=== PATIENT | male | born 1990 | race Hispanic/Latino ===

== ENCOUNTER 2022-12-28 17:40 | Emergency (ER) | payer OTHER ==
--- NOTE | 2022-12-28 20:05 | RAD REPORT ---
EXAM DESCRIPTION: RAD - Foot Right 3 View - 12/28/2022 6:17 pm CLINICAL HISTORY: Pain;Swelling COMPARISON: No comparisons TECHNIQUE: Right foot, 3 views. FINDINGS: No fracture, dislocation or periosteal reaction. No air or foreign body in the soft tissues. IMPRESSION: Negative right foot examination.
--- NOTE | 2022-12-28 20:10 | EDPHYS ---
Physician Documentation [facility] Name: Dirk Toledo Age: 32 yrs Sex: Male : 1990 Arrival Date: 12/28/2022 Time: 17:40 Bed 20 Private MD: ED Physician Gareth Kirk HPI: 12/28 17:53 This 32 yrs old Male presents to ER via Unassigned with complaints of Foot sb4 Pain. 17:53 The patient presents with pain, that is acute. The complaints affect the right foot. sb4 Context: [place] resulted from an unknown cause, must have assistance, Problem is a result from a previous injury: No. Onset: The symptoms/episode began/occurred just prior to arrival. Modifying factors: The symptoms are alleviated by nothing. the symptoms are aggravated by weight bearing. Treatment prior to arrival includes: no previous treatment. 17:56 patient was at the beach, had just gotten his feet into the water when he felt a pain sb4 in his right foot. he is not sure if he was stung by a stingray, jellyfish, or stepped on something. he reports severe pain to the right foot with associated swelling. reports he had a tetanus shot 2 years ago. Historical: - Allergies: 17:40 No Known Allergies; eh3 - Home Meds: 17:40 amlodipine oral [Active]; Lisinopril Oral [Active]; Clonazepam Oral [Active]; eh3 atorvastatin oral [Active]; escitalopram oxalate oral [Active]; pantoprazole oral [Active]; - PMHx: 17:40 Hypertensive disorder; Hypercholesterolemia; Anxiety; eh3 - PSHx: 17:40 Cardiac ablation; eh3 - Immunization history:: Adult Immunizations up to date. - Social history:: Smoking status: Patient denies any tobacco usage or history of. Patient uses alcohol, weekly. ROS: 17:56 Constitutional: Negative for fever, chills, and weight loss. sb4 17:56 MS/extremity: Positive for injury or acute deformity, erythema, pain, swelling, tenderness, tingling, warmth, of the right foot. 17:56 All other systems are negative. Exam: 17:56 Head/Face: Normocephalic, atraumatic. sb4 17:56 Constitutional: The patient appears alert, awake, in obvious pain, uncomfortable. 17:56 Musculoskeletal/extremity: Extremities: grossly normal except: erythema, pain, puncture, swelling, tenderness, ROM: intact in all extremities, Circulation is intact in all extremities. Sensation intact. 17:56 Skin: injury, puncture(s), that are superficial, of the lateral side of right foot. Vital Signs: 17:40 BP 131 / 92; Pulse 92; Resp 20; Temp 99.1(IR); Pulse Ox 97% on R/A; Weight 104.33 kg; eh3 Height 5 ft. 8 in. ; Pain 10/10; 18:30 BP 135 / 88; Pulse 97; Resp 18; Pulse Ox 96% on R/A; eh3 19:30 BP 119 / 80; Pulse 84; Resp 18; Pulse Ox 95% on R/A; eh3 20:30 BP 123 / 75; Pulse 81; Resp 18; Pulse Ox 95% on R/A; eh3 17:40 Body Mass Index 34.97 (104.33 kg, 172.72 cm) 3 17:40 Pain Scale: Adult eh3 MDM: 17:42 Patient medically screened. sb4 17:56 Differential diagnosis: stingray sting, jellyfish sting, laceration with foreign body, sb4 superficial laceration, tendon injury. 20:09 Data reviewed: vital signs, nurses notes, radiologic studies, and as a result, I will sb4 discharge patient. Counseling: I had a detailed discussion with the patient and/or guardian regarding: the historical points, exam findings, and any diagnostic results supporting the discharge/admit diagnosis, radiology results, to return to the emergency department if symptoms worsen or persist or if there are any questions or concerns that arise at home. 12/29 14:54 Independent interpretation of the following test(s) in the Emergency Department X-Ray: sb4 My interpretation is my interpretation of the foot xray images are no acute fracture or foreign body. Response to treatment: the patient's symptoms have markedly improved after treatment. 12/28 17:52 Order name: Foot Right 3 View XRAY; Complete Time: 20:06 sb4 Administered Medications: 12/28 18:00 Drug: morphine IM 4 mg Route: IM; Site: right deltoid; [facility] 19:00 Follow up: Response: No adverse reaction eh3 18:00 Drug: Ondansetron PO 4 mg Route: PO; eh3 19:00 Follow up: Response: No adverse reaction eh3 Disposition: 12/29 07:54 Co-signature as Attending Physician, Gareth Kirk MD I agree with the assessment and kdr plan of care. Disposition Summary: 12/28/22 20:09 Discharge Ordered Location: Home sb4 Problem: new sb4 Symptoms: have improved sb4 Condition: Stable sb4 Diagnosis - Toxic effect of contact with stingray, accidental (unintentional), initial encountersb4 Followup: sb4 - With: Private Physician - When: As needed - Reason: Recheck today's complaints, Continuance of care, Re-evaluation by your physician Discharge Instructions: - Discharge Summary Sheet sb4 - Marine Life Injury, [id number] sb4 Forms: - Medication Reconciliation Form sb4 - Thank You Letter sb4 - Antibiotic Education sb4 - Prescription Opioid Use sb4 - Patient Portal Instructions sb4 - Leadership Thank You Letter sb4 Prescriptions: - ketorolac 10 mg Oral tablet - take 1 tablet by ORAL route every 4 to 6 hours for 1 day as needed for pain; do sb4 not exceed 4 doses per 24 hrs; 12 tablet; Refills: 0, Product Selection Permitted - Doxycycline Hyclate 100 mg Oral Tablet - take 1 tablet by ORAL route every 12 hours; 20 tablet; Refills: 0, Product sb4 Selection Permitted Signatures: Dispatcher [employer] Gareth Zavala MD MD kdr Hall, Erin, RN RN 3 Asiya Martin PA-C PA-C sb4
--- NOTE | 2022-12-28 20:10 | ER ---
Nurse's Notes [facility] Name: Dirk Toledo Age: 32 yrs Sex: Male : 1990 Arrival Date: 12/28/2022 Time: 17:40 Bed 20 Private MD: Diagnosis: Toxic effect of contact with stingray, accidental (unintentional), initial encounter Presentation: 12/28 17:40 Chief complaint: Patient states: [place]ray [place] beach just [employer]. Coronavirus eh3 screen: Vaccine status: Patient reports receiving the 2nd dose of the covid vaccine. Ebola Screen: No symptoms or risks identified at this time. Initial Sepsis Screen: Does the patient meet any 2 criteria? No. Patient's initial sepsis screen is negative. Does the patient have a suspected source of infection? No. Patient's initial sepsis screen is negative. Risk Assessment: Do you want to hurt yourself or someone else? Patient reports no desire to harm self or others. Onset of symptoms was December 28, 2022. 17:40 Method Of Arrival: Ambulatory [facility] 17:40 Acuity: RITA 3 eh3 Triage Assessment: 17:40 General: Appears distressed, uncomfortable, Behavior is cooperative, appropriate for [facility] age, crying. Pain: Complains of pain in left foot. Neuro: Level of Consciousness is awake, alert, obeys commands, Oriented to person, place, time, situation. Cardiovascular: Capillary refill < 3 seconds Patient's skin is warm and dry. Respiratory: Airway is patent Respiratory effort is even, unlabored, Respiratory pattern is regular, symmetrical. GI: Abdomen is round non-distended. Derm: Skin is pink, warm \T\ dry. Musculoskeletal: Circulation, motion, and sensation intact. Injury Description: Puncture sustained to instep of left foot is by stingray was sustained 30-60 minutes ago. Historical: - Allergies: 17:40 No Known Allergies; 3 - Home Meds: 17:40 amlodipine oral [Active]; Lisinopril Oral [Active]; Clonazepam Oral [Active]; eh3 atorvastatin oral [Active]; escitalopram oxalate oral [Active]; pantoprazole oral [Active]; - PMHx: 17:40 Hypertensive disorder; Hypercholesterolemia; Anxiety; eh3 - PSHx: 17:40 Cardiac ablation; 3 - Immunization history:: Adult Immunizations up to date. - Social history:: Smoking status: Patient denies any tobacco usage or history of. Patient uses alcohol, weekly. Screenin:40 [facility] ED Fall Risk Assessment (Adult) Score/Fall Risk Level 0 - 2 = Low Risk. Abuse eh3 screen: Denies threats or abuse. Denies injuries from another. Nutritional screening: No deficits noted. Tuberculosis screening: No symptoms or risk factors identified. Assessment: 17:40 Reassessment: No changes from previously documented assessment. See triage assessment. 3 18:30 Reassessment: Patient appears in no apparent distress at this time. Patient and/or 3 family updated on plan of care and expected duration. Pain level reassessed. Patient is alert, oriented x 3, equal unlabored respirations, skin warm/dry/pink. 19:30 Reassessment: Patient appears in no apparent distress at this time. Patient and/or 3 family updated on plan of care and expected duration. Pain level reassessed. Patient is alert, oriented x 3, equal unlabored respirations, skin warm/dry/pink. 20:30 Reassessment: Patient appears in no apparent distress at this time. Patient and/or 3 family updated on plan of care and expected duration. Pain level reassessed. Patient is alert, oriented x 3, equal unlabored respirations, skin warm/dry/pink. Vital Signs: 17:40 BP 131 / 92; Pulse 92; Resp 20; Temp 99.1(IR); Pulse Ox 97% on R/A; Weight 104.33 kg; 3 Height 5 ft. 8 in. ; Pain 10/10; 18:30 BP 135 / 88; Pulse 97; Resp 18; Pulse Ox 96% on R/A; eh3 19:30 BP 119 / 80; Pulse 84; Resp 18; Pulse Ox 95% on R/A; eh3 20:30 BP 123 / 75; Pulse 81; Resp 18; Pulse Ox 95% on R/A; 3 17:40 Body Mass Index 34.97 (104.33 kg, 172.72 cm) [facility] 17:40 Pain Scale: Adult [facility] ED Course: 17:40 Arm band placed on. 3 17:40 Patient has correct armband on for positive identification. Bed in low position. Call [facility] light in reach. Adult w/ patient. Provided Education on: Use of call braga. Pulse ox on. NIBP on. 17:40 Wound care: foot submerged in very warm water. eh3 17:41 Patient arrived in ED. rg4 17:42 Asiya Martin PA-C is PHCP. sb4 17:42 Gareth Kirk MD is Attending Physician. sb4 17:51 Amanda Iverson, RN is Primary Nurse. eh3 18:19 Foot Right 3 View XRAY In Process Unspecified. EDMS 18:19 Triage completed. eh3 20:32 No provider procedures requiring assistance completed. Patient did not have IV access eh3 during this emergency room visit. Administered Medications: 18:00 Drug: morphine IM 4 mg Route: IM; Site: right deltoid; eh3 19:00 Follow up: Response: No adverse reaction eh3 18:00 Drug: Ondansetron PO 4 mg Route: PO; eh3 19:00 Follow up: Response: No adverse reaction eh3 Medication: 20:33 VIS not applicable for this client. eh3 Outcome: 20:09 Discharge ordered by . sb4 20:33 Discharged to home ambulatory, with family. eh3 20:33 Condition: stable 20:33 Discharge instructions given to patient, family, Instructed on discharge instructions, follow up and referral plans. medication usage, Demonstrated understanding of instructions, follow-up care, medications, Prescriptions given X 2. 20:49 Patient left the ED. eh3 Signatures: Dispatcher [employer] Angelika Larsen rg4 Amanda Iverson, SHERICE RN eh3 Asiya Martin PA-C PA-C sb4
[2022-12-28 20:58] VITALS: TEMP 99.1
[2022-12-28 21:00] VITALS: O2SAT 95
[2022-12-28 21:02] VITALS: BP 123/75
== END 2022-12-28 20:49 | disposition home or self-care (01) ==
LOC: ER 17:40
DX: T63.511A Toxic effect of contact with stingray, accidental (unintentional), initial encounter (principal)
CPT/HCPCS: 96372; 99284